=== PATIENT | male | born 1975 | race Caucasian/White ===

== ENCOUNTER 2017-07-25 11:45 | Emergency (ER) | payer MEDICAID ==
[~2017-07-25] VITALS: Ht 180.3 cm; Wt 56.5 kg
[2017-07-25 12:07] VITALS: BP 141/101
[2017-07-25] MEDS ORDERED: OLAN10TA3 PO ×2 (12:47→13:10)
== END 2017-07-25 13:15 | disposition home or self-care (01) ==
LOC: ER 11:45
DX: Z76.0 Encounter for issue of repeat prescription (principal); F17.200 Nicotine dependence, unspecified, uncomplicated; F12.90 Cannabis use, unspecified, uncomplicated; F15.90 Other stimulant use, unspecified, uncomplicated; Z98.890 Other specified postprocedural states
CPT/HCPCS: 99283